=== PATIENT | female | born 1955 | race Caucasian/White ===

== ENCOUNTER 2017-04-20 05:32 | Outpatient (CLI) | payer BC ==
[~2017-04-20] VITALS: Ht 170.2 cm; Wt 86.2 kg
[~2017-04-20 05:32] MED LIST: HYDR12.570 PO; HYDR1TAB PO; LEVO500T69 PO; LVT.088T PO; MED FOR CHOLESTEROL; METR500T PO; ONDA8TAB13 PO; TELM1TAB2 PO
[2017-04-20] MEDS ORDERED: POTA-51 PO (11:09)
[2017-04-20] MEDS ORDERED: UBID100C44 PO (11:09)
[2017-04-20] MEDS ORDERED: LEVO50TA6 PO (11:09)
[2017-04-20] MEDS ORDERED: METF500T4 PO (11:09)
[2017-04-20] MEDS ORDERED: CYAN250010 PO (11:09)
[2017-04-20] MEDS ORDERED: LISI1TAB8 PO (11:09)
[2017-04-20] MEDS ORDERED: LIRA0.6P SQ (11:09)
[2017-04-20] MEDS ORDERED: LIOT5TAB3 PO (11:09)
[2017-04-20] MEDS ORDERED: SIMV20TA3 PO (11:09)
== END 2017-04-20 11:15 ==
LOC: PREOP 05:32
PROVIDERS: ATTEND Surgery
DX: Z01.818 Encounter for other preprocedural examination (principal); L72.3 Sebaceous cyst

== ENCOUNTER 2017-04-26 08:20 | Day surgery (SDC) | payer BC, OTHER ==
[~2017-04-26] VITALS: Ht 170.2 cm; Wt 86.2 kg
[~2017-04-26 08:20] MED LIST changes: +CYAN250010 PO; +LEVO50TA6 PO; +LIOT5TAB3 PO; +LIRA0.6P SQ; +LISI1TAB8 PO; +METF500T4 PO; +POTA-51 PO; +SIMV20TA3 PO; +UBID100C44 PO
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
--- NOTE | 2017-04-26 08:31 | Progress Note-Pre Operative ---
Pre-Operative Progress Note H&P Reviewed The H&P was reviewed, patient examined and no changes noted. Date Seen by Provider: Apr 26, 2017 Time Seen by Provider: 11:40 Date H&P Reviewed: Apr 26, 2017 Time H&P Reviewed: 08:30 Pre-Operative Diagnosis: Sebaceous cyst-left inframammary region ADELSO HEIN MD Apr 26, 2017 8:31 am
[2017-04-26 08:45] VITALS: BP 112/60
[2017-04-26] MEDS ORDERED: ceFAZolin 2 GM/NS 50 ML IV ONE (08:45)
[2017-04-26] MEDS ORDERED: CATHETER FLUSH 10 ML SYR IV PRN (08:45)
[2017-04-26] MEDS ORDERED: FAMOTIDINE 20MG/2ML IV (PEPCID) ONE (09:13)
[2017-04-26] MEDS ORDERED: FAMOTIDINE 20MG/2ML IV (PEPCID) IV ONE (09:15)
[2017-04-26] MEDS ORDERED: LACTATED RINGERS 1,000 ML IV PRN (09:27)
[2017-04-26] MEDS ORDERED: ceFAZolin 2 GM/50 ML NS 50 ML IV ONE (09:30)
[2017-04-26] MEDS ORDERED: LIDOCAINE/EPI 1%-1:200,000 (XYLOCAINE) 10 ML VIAL ONE (10:26)
[2017-04-26] MEDS ORDERED: BUPIVACAINE 0.25% 30 ML (SENSORCAINE) VIAL ONE (10:26)
[2017-04-26] MEDS ORDERED: proPOfol 200 MG/20 ML (DIPRIVAN) VIAL IV ONE (10:32)
[2017-04-26] MEDS ORDERED: fentaNYL INJECTION 100 MCG/2 ML AMP ONE (10:32)
[2017-04-26] MEDS ORDERED: MIDAZOLAM 2 MG/2 ML (VERSED) VIAL ONE (10:32)
[2017-04-26] MEDS ORDERED: LIDOCAINE PF 2% 5 ML (XYLOCAINE) VIAL ONE (10:32)
[2017-04-26] MEDS ORDERED: ONDANSETRON 4 MG/2 ML (SDV) Z0FRAN ONE (10:32)
[2017-04-26] MEDS ORDERED: SEVOFLURANE (ULTANE) 15 ML INHAL SOLN ONE (10:32)
--- NOTE | 2017-04-26 11:31 | Operative Report ---
Operative Report Date of Procedure/Surgery Apr 26, 2017 Surgeon (s) ADELSO HEIN MD Calendering Machine Operator (s): N/A Post-Operative Diagnosis Same Procedure Performed Excision with layered closure Description of Procedure Anesthesia Type: General Estimated blood loss (mL): Minimal Specimen(s) collected/removed sebaceous cyst Description of the Procedure Indication for the procedure: This lady presented with a 3 cm sebaceous cyst over the left infra-mammary with early signs of infection. Following a brief course of antibiotics, she was offered formal excision under general anesthetic. Informed consent was obtained after relieving the operative details and complications of postoperative wound infection and recurrence. Description of procedure: She was placed supine on the operating table and general anesthesia induced. 2 g of Ancef were administered intravenously as prophylaxis against wound infection. After adequate antiseptic preparation, pre -emptivw analgesia was established using a combination 1 percent lidocaine with epinephrine and 0.5 percent Marcaine. An elliptical incision about 6 cm was made in a transverse fashion and the cyst excised intact. Hemostasis was achieved using cautery and incision closed using 3-0 Vicryl for the sub- cutaneous tissue and 4-0 nylon for skin, in an interrupted fashion. A nonadherent dressing was then applied She tolerated the procedure well, was extubated in the operating room and taken to the recovery room in a stable condition. Findings of the Procedure see op report Allergies and Home Medications Allergies Coded Allergies: No Known Drug Allergies (Unverified , 04/20/17) Home Medications Cyanocobalamin (Vitamin B-12) 2,500 Mcg Tablet, 2,500 MCG PO DAILY, (Reported) Levothyroxine Sodium 50 Mcg Tablet, 50 MCG PO DAILY, (Reported) Liothyronine Sodium 5 Mcg Tablet, 5 MCG PO BID, (Reported) Liraglutide 0.6 Mg/0.1 Ml Pen.injctr, 1.8 MG SQ DAILY, (Reported) Lisinopril/Hydrochlorothiazide 1 Each Tablet, 1 EACH PO BID, (Reported) Metformin HCl 500 Mg Tablet, 500 MG PO DAILY, (Reported) Potassium Chloride 20 Meq Tablet.er, 20 MEQ PO DAILY, (Reported) Simvastatin 20 Mg Tablet, 20 MG PO DAILY, (Reported) Ubidecarenone 100 Mg Capsule, 100 MG PO DAILY, (Reported) ADELSO HEIN MD Apr 26, 2017 11:31 am
[2017-04-26] MEDS ORDERED: ACHD5005 PO (11:33)
--- NOTE | 2017-04-26 11:37 | Discharge Inst-Simple/Standard ---
Discharge Inst-Standard Discharge Medications New, Converted or Re-Newed RX: RX on Chart Patient Instructions/Follow Up Plan of Care/Instructions/FU: Dressing off in 48 hours.F/U with my nurse in 10 days for suture removal Activity as Tolerated: Yes Discharge Diet: No Restrictions ADELSO HEIN MD Apr 26, 2017 11:37 am
[2017-04-26] MEDS ORDERED: morphine INJ 10 MG/ML 1ML (SYR OR VIAL) IVP PRN (11:45)
[2017-04-26] MEDS ORDERED: HYDROmorphone (DILAUDID) 2 MG/ML VIAL IVP PRN (11:45)
[2017-04-26] MEDS ORDERED: ONDANSETRON 4 MG/2 ML (SDV) Z0FRAN IVP PRN (11:45)
[2017-04-26] MEDS ORDERED: MEPERIDINE (DEMEROL) INJ 50 MG/ML IVP PRN (11:45)
[2017-04-26 12:30] VITALS: BP 110/63
[2017-04-26 13:00] VITALS: BP 109/60
== END 2017-04-26 13:20 | disposition home or self-care (01) ==
LOC: SDC 08:20
PROVIDERS: ATTEND Surgery
DX: L72.3 Sebaceous cyst (principal); E11.9 Type 2 diabetes mellitus without complications; E03.9 Hypothyroidism, unspecified; Z79.84 Long term (current) use of oral hypoglycemic drugs; Z79.899 Other long term (current) drug therapy; Z87.891 Personal history of nicotine dependence
CPT/HCPCS: 82962; 87081

== ENCOUNTER → 2017-09-12 | Outpatient (CLI) | payer BC, OTHER ==
[~2017-09-12] MED LIST changes: +ACHD5005 PO; -METF500T4 PO; +METF500T5 PO
--- NOTE | 2017-09-12 19:25 | Diagnostic Imaging Report ---
Indication: Routine screening. Comparison is made with prior mammogram from 10/17/2013 and 06/25/2012. 2-D and 3-D bilateral screening mammography was performed with CAD. Both breasts are heterogeneously dense, limiting the sensitivity of mammography. No dominant mass or malignant appearing microcalcifications are seen. The axillae are unremarkable. There are benign calcifications present. Impression: BI-RADS category 2 No mammographic features suspicious for malignancy are identified. ACR BI-RADS Category 2: Benign findings. Result letter will be mailed to the patient. Note: At least 10% of breast cancer is not imaged by mammography. Dictated by: Dictated on workstation # [id number]
== END ==
LOC: RAD 14:35
PROVIDERS: ATTEND Internal Medicine
DX: Z12.31 Encounter for screening mammogram for malignant neoplasm of breast (principal)
CPT/HCPCS: 77067

== ENCOUNTER → 2019-04-29 | Outpatient (CLI) | payer OTHER ==
[~2019-04-29] MED LIST changes: +LIOT5TAB10 PO; -LIOT5TAB3 PO; +LISI1TAB25 PO; -LISI1TAB8 PO; +METF-397 PO; -METF500T5 PO; +SIMV20TA26 PO; -SIMV20TA3 PO
--- NOTE | 2019-04-29 17:24 | Diagnostic Imaging Report ---
INDICATION: Increasing right shoulder pain with no recent injury. FINDINGS: Three views of the right shoulder show no fracture, dislocation, or other acute abnormality. There is mild narrowing and minimal spurring of the glenohumeral joint. IMPRESSION: There are mild degenerative changes present with no acute abnormality seen. Dictated by: Dictated on workstation # [id number]
== END ==
LOC: RAD 16:58
PROVIDERS: ATTEND Internal Medicine
DX: M19.011 Primary osteoarthritis, right shoulder (principal); G56.03 Carpal tunnel syndrome, bilateral upper limbs; M77.11 Lateral epicondylitis, right elbow; I73.00 Raynaud's syndrome without gangrene
CPT/HCPCS: 73030

== ENCOUNTER → 2020-12-24 | Outpatient (CLI) | payer OTHER ==
[~2020-12-24] MED LIST changes: -LISI1TAB25 PO; +LISI1TAB46 PO
--- NOTE | 2020-12-24 17:17 | Diagnostic Imaging Report ---
INDICATION: Routine screening. Comparison is made with prior mammogram 09/12/2017 and 10/17/2013. 2-D and 3-D bilateral screening mammography was performed with CAD. Both breasts are heterogeneously dense, limiting the sensitivity of mammography. The parenchymal pattern is stable. No mass or malignant-appearing microcalcifications are seen. There are benign calcifications. Axillae are unremarkable. IMPRESSION: BI-RADS Category 2 No mammographic features suspicious for malignancy are identified. ACR BI-RADS Category 2: Benign findings. Result letter will be mailed to the patient. Note: At least 10% of breast cancer is not imaged by mammography. Dictated by: Dictated on workstation # [id number]
== END ==
LOC: RAD 14:48
PROVIDERS: ATTEND Nurse Practitioner Family
DX: Z12.31 Encounter for screening mammogram for malignant neoplasm of breast (principal)
CPT/HCPCS: 77063; 77067

== ENCOUNTER → 2021-08-20 | Outpatient (CLI) | payer OTHER ==
[~2021-08-20] VITALS: Ht 170 cm; Wt 91.0 kg
[~2021-08-20] MED LIST changes: +CATHETER FLUSH 10 ML SYR IVP PRN
[2021-08-20 08:09] VITALS: BP 134/79
--- NOTE | 2021-08-20 13:00 | NUCLEAR STRESS TEST ---
TREADMILL NUCLEAR STRESS TEST Date of procedure: 08/20/2021. Primary care provider: Jayesh Cantu DO. Admitting physician: Jayesh Cantu DO. INDICATION: Chest pain. BASELINE ELECTROCARDIOGRAM: Sinus rhythm STRESS TEST PROCEDURE: Please see separate report for stress test results. This is the nuclear interpretation only. NUCLEAR PROCEDURE: The patient was administered 10.7 mCi of intravenous technetium 99m Tetrofosmin at rest for the rest images. The patient was subsequ ently administered 29.6 mCi of intravenous technetium 99 M Tetrofosmin at peak stress for the stress images. Following an appropriate wait after each injection, imaging was obtained. The images were subsequently processed and reformatted in the usual views. Gated imaging was obtained. The image quality was adequate with a mild degree of gastrointestinal attenuation artifact. CT attenuation correction was used as a adjunct to standard imaging. Both the corrected and uncorrected images were reviewed for interpretation. NUCLEAR RESULTS: There was a small, moderate intensity, reversible inferoapical defect with a small amount of inducible ischemia with a summed stress score of 7 and a summed difference score of 6. There was normal left ventricular chamber size with an end-diastolic volume of 48 mL and an end-systolic volume of 17 mL. There was no evidence of transient ischemic dilatation. The TID ratio was 1.08. There was normal wall motion in all segments with a calculated ejection fraction of 64%. IMPRESSION: 1. This is the nuclear interpretation only for a treadmill nuclear stress test. 2. There was a small, moderate intensity, reversible inferoapical defect with a small amount of inducible ischemia with a summed stress score of 7 and a summed difference score of 6. 3. There was normal wall motion in all segments with a calculated ejection fraction of 64%. 4. This is an abnormal result although represents an overall low risk for possible future coronary ischemic events. Certain portions of this document may have been dictated utilizing voice recognition technology. Inherent to this technology, typographical and grammatical errors may exist. As much as I am diligent to identify and correct these mistakes, some errors may remain in the document. ANNITA SMITH JR, MD August 20, 2021 12:59
== END ==
LOC: CARD 06:32
PROVIDERS: ATTEND Internal Medicine
DX: R07.89 Other chest pain (principal)
CPT/HCPCS: 78452; 93017; A9502

== ENCOUNTER 2021-09-30 10:00 | Day surgery (SDC) | payer OTHER ==
[2021-09-30] VITALS (9 sets, daily range): BP systolic 95–122; BP diastolic 49–79
[~2021-09-30] VITALS: Ht 170.2 cm; Wt 100.9 kg
[2021-09-30 08:45] LABS: BASOPHILS % (AUTO) 1 % (0-10); EOSINOPHILS # (AUTO) 0.1 10^3/uL (0.0-0.3); EOSINOPHILS % (AUTO) 1 % (0-10); HEMATOCRIT 44 % (35-52); HEMOGLOBIN 14.1 g/dL (11.5-16.0); LYMPHOCYTES # (AUTO) 2.1 10^3/uL (1.0-4.0); LYMPHOCYTES % (AUTO) 25 % (12-44); MEAN CORPUSCULAR HEMOGLOBIN 28 pg (25-34); MEAN CORPUSCULAR HGB CONC 32 g/dL (32-36); MEAN CORPUSCULAR VOLUME 86 fL (80-99); MEAN PLATELET VOLUME 9.9 fL (9.0-12.2); MONOCYTES # (AUTO) 0.6 10^3/uL (0.0-1.0); MONOCYTES % (AUTO) 7 % (0-12); NEUTROPHILS # (AUTO) 5.4 10^3/uL (1.8-7.8); NEUTROPHILS % (AUTO) 66 % (42-75); PLATELET COUNT 381 10^3/uL (130-400); WHITE BLOOD COUNT 8.2 10^3/uL (4.3-11.0)
--- NOTE | 2021-09-30 08:53 | Pre-Op Note & Conscious Sedat ---
Pre-Operative Progress Note H&P Reviewed The H&P was reviewed, patient examined and no changes noted. Date H&P Reviewed: Sep 30, 2021 Time H&P Reviewed: 08:53 Pre-Op Diagnosis: Abnormal nuclear stress test and angina pectoris Given her current clinical status, she is considered vulnerable. She has no history of heart failure. Conscious Sedation Pre-Proced ASA Score 2 For ASA 3 and 4: Consider anesthesia and medical clearance. Also, for patients with a history of failed moderate sedation consider anesthesia. Airway Lungs Heart ASA score ASA 1: a normal healthy patient ASA 2: a patient with a mild systemic disease (mid diabetes, controlled hypertension, obesity ASA 3: a patient with a severe systemic disease that limits activity (angina, COPD, prior Myocardial infarction) ASA 4: a patient with an incapacitating disease that is a constant threat to life (CHF, renal failure) ASA 5: a moribund patient not expected to survive 24 hrs. (ruptured aneurysm) ASA 6: a declared brain- patient whose organs are being harvested. For emergent operations, add the letter E after the classification Mallampati Classification Grade 2 Sedation Plan Analgesia, Amnesia, Plan communicated to team members, Discussed options with patient/fam, Discussed risks with patient/fam The patient is an appropriate candidate to undergo the planned procedure, sedation, and anesthesia. The patient immediately re-assessed prior to indication. ANNITA SMITH JR, MD Sep 30, 2021 08:53
[2021-09-30 08:59] LABS: INR 0.9 (0.8-1.4); PROTHROMBIN TIME PATIENT 12.9 SEC (12.2-14.7)
[~2021-09-30 10:00] MED LIST changes: +ACET325T38 PO; +ASPIRIN 81 MG CHEW (CHILDREN'S ASA) ONE; +ASPIRIN 81 MG CHEW (CHILDREN'S ASA) PO ONE; +CALC-250 PO; +CATHETER FLUSH 10 ML SYR IV PRN; -CATHETER FLUSH 10 ML SYR IVP PRN; +CYAN-41 PO; +HEParin (CATH LAB) 2,000 ML IV ONE; +HEParin 1000 UNIT/ML (10ML VIAL) FOR BOLUS ONE; +LEVO50CA4 PO; +LIDOCAINE 1% INJ 20 ML VIAL ONE; +MIDAZOLAM 5 MG/5 ML (VERSED) VIAL ONE; +NITRO DRIP 25000 MCG/D5W 250 ML IV ONE; +NS IV 1000 ML 1,000 ML IV ONE; +OMEP20TA56 PO; +VENL75TA2 PO; +VERAPAMIL 5 MG/2 ML (CALAN) VIAL IV ONE; +fentaNYL INJ 100 MCG/2 ML AMP ONE
[2021-09-30] MEDS ORDERED: NS IV 1000 ML 1,000 ML IV SCH (10:30)
--- NOTE | 2021-09-30 10:31 | Cardiac Cath Report ---
CARDIAC CATHETERIZATION DATE OF PROCEDURE: 09/30/2021 INDICATION: Abnormal nuclear stress test and angina pectoris. HISTORY: The patient is a 65 year old female with no previously known history of coronary artery disease who has been having some dyspnea on exertion. Her primary provider had her undergo a nuclear stress test which showed a mild inferoapical ischemic defect with an ejection fraction of 64%. In light of these findings, she is now referred for further evaluation with a cardiac catheterization. Given her current clinical status, she is considered vulnerable. She has no history of heart failure. PROCEDURES PERFORMED: 1. Left heart catheterization with hemodynamic measurements. 2. Diagnostic [place] coronary angiography. PROCEDURE DESCRIPTION: After informed consent and in the fasting state, left heart catheterization was performed through the right radial artery utilizing a 6 [place]yan system by percutaneous approach. Standard 5 [place] Wally catheters were utilized for the diagnostic portion of the procedure. All catheters were exchanged over a guidewire. Following the procedure, a vascular band was applied to the radial artery access site and the sheath was removed with good hemostasis. RESULTS: HEMODYNAMICS: The aortic pressure was 88/48 mmHg. The left ventricular pressure was 90/0 mmHg with a left ventricular end-diastolic pressure of 2 mmHg. There was no significant pressure gradient upon pullback across aortic valve. CORONARY ANGIOGRAPHY: Coronary arteries were mildly calcified, more evident in the left coronary artery. Left main coronary artery: Free of significant disease. Left anterior descending coronary artery: Free of significant disease. The vessel actually bifurcated near the apex. There was a small first diagonal branch which contained a 50% stenosis in the ostium and a 50% stenosis in the proximal segment with ABRAHAM-3 flow. This was approximately a 2 mm vessel. Left circumflex coronary artery: Free of significant disease. Right coronary artery: Dominant and free of significant disease. IMPRESSION: 1. Normal left heart pressures. 2. Mild single-vessel coronary artery disease involving the first diagonal branch of the left anterior descending coronary artery as outlined above. 3. The patient is known to have normal left ventricular systolic function with a calculated ejection fraction of 64% by nuclear stress test that was performed on 08/20/2021. Certain portions of this document may have been dictated utilizing voice recognition technology. Inherent to this technology, typographical and grammatical errors may exist. As much as I am diligent to identify and correct these mistakes, some errors may remain in the document. ANNITA SMITH JR, MD Sep 30, 2021 10:31
[2021-09-30] MEDS ORDERED: ASPI-1238 PO (10:46)
[2021-10-01] MEDS ORDERED: ASPIRIN E.C. 81 MG (ECOTRIN) TAB PO SCH (09:00)
== END 2021-09-30 14:00 | disposition home or self-care (01) ==
LOC: CATH 10:00 → SDC 10:47 → CATH 14:00
PROVIDERS: ATTEND Internal Medicine Cardiovascular Disease
DX: I25.10 Atherosclerotic heart disease of native coronary artery without angina pectoris (principal); Z87.891 Personal history of nicotine dependence
CPT/HCPCS: 85025; 85610; 87081; 93458; C1894; 36415

== ENCOUNTER → 2021-11-08 | Outpatient (CLI) | payer OTHER ==
[~2021-11-08] MED LIST changes: +ASPI-1238 PO; -ASPIRIN 81 MG CHEW (CHILDREN'S ASA) ONE; -ASPIRIN 81 MG CHEW (CHILDREN'S ASA) PO ONE; -CATHETER FLUSH 10 ML SYR IV PRN; -HEParin (CATH LAB) 2,000 ML IV ONE; -HEParin 1000 UNIT/ML (10ML VIAL) FOR BOLUS ONE; -LIDOCAINE 1% INJ 20 ML VIAL ONE; -MIDAZOLAM 5 MG/5 ML (VERSED) VIAL ONE; -NITRO DRIP 25000 MCG/D5W 250 ML IV ONE; -NS IV 1000 ML 1,000 ML IV ONE; -VERAPAMIL 5 MG/2 ML (CALAN) VIAL IV ONE; -fentaNYL INJ 100 MCG/2 ML AMP ONE
== END ==
LOC: CARD 14:19
PROVIDERS: ATTEND Physician Assistant
DX: I25.10 Atherosclerotic heart disease of native coronary artery without angina pectoris (principal); I11.9 Hypertensive heart disease without heart failure
CPT/HCPCS: 93306

== ENCOUNTER → 2022-04-12 | Outpatient (CLI) | payer OTHER ==
--- NOTE | 2022-04-12 18:29 | Diagnostic Imaging Report ---
Indication: Routine screening. Comparison is made with prior mammograms 12/24/2020 and 09/12/2017. 2-D and 3-D bilateral screening mammography was performed with CAD. Both breasts are heterogeneously dense, limiting the sensitivity of mammography. The parenchymal pattern is stable. No mass or malignant-appearing microcalcifications are seen. There are benign calcifications. Axillae are unremarkable. IMPRESSION: BI-RADS Category 2. No mammographic features suspicious for malignancy are identified. ACR BI-RADS Category 2: Benign findings. Result letter will be mailed to the patient. Note: At least 10% of breast cancer is not imaged by mammography. Dictated by: Dictated on workstation # [id number]
== END ==
LOC: RAD 14:18
PROVIDERS: ATTEND Nurse Practitioner Family
DX: Z12.31 Encounter for screening mammogram for malignant neoplasm of breast (principal)
CPT/HCPCS: 77063; 77067

== ENCOUNTER 2022-09-16 18:32 | Emergency (ER) | payer OTHER ==
[~2022-09-16] VITALS: Ht 170 cm; Wt 100.0 kg
[2022-09-16] MEDS ORDERED: ACETAMINOPHEN 500 MG TAB (TYLENOL) PO ONE (19:15)
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
--- NOTE | 2022-09-16 19:45 | Diagnostic Imaging Report ---
INDICATION: Chest tightness. FINDINGS: The heart size, mediastinal configuration, and pulmonary vascularity are within normal limits. There is no pleural effusion, pneumothorax, or pneumonia. The osseous structures are unremarkable. IMPRESSION: No acute cardiopulmonary abnormality. Dictated by: Dictated on workstation # [id number]
--- NOTE | 2022-09-16 19:46 | Diagnostic Imaging Report ---
INDICATION: Pain. EXAMINATION: Three views were obtained. FINDINGS: The alignment is normal. There is no fracture or dislocation. Soft tissues are unremarkable. IMPRESSION: No acute fracture or dislocation. Dictated by: Dictated on workstation # [id number]
[2022-09-16 19:58] VITALS: BP 124/74
== END 2022-09-16 19:58 | disposition home or self-care (01) ==
LOC: EDUNIT# 18:32 → ER 18:35
DX: S50.11XA Contusion of right forearm, initial encounter (principal); M25.521 Pain in right elbow; R07.81 Pleurodynia; V89.2XXA Person injured in unspecified motor-vehicle accident, traffic, initial encounter; W22.8XXA Striking against or struck by other objects, initial encounter; Y92.410 Unspecified street and highway as the place of occurrence of the external cause
CPT/HCPCS: 71046; 73080; 73090

== ENCOUNTER → 2022-09-16 | Outpatient (CLI) | payer OTHER ==
[~2022-09-16] MED LIST changes: +POTA-330 PO; -POTA-51 PO
--- NOTE | 2022-09-16 09:38 | Diagnostic Imaging Report ---
EXAMINATION: CT chest without contrast (lung screening). TECHNIQUE: Multiple contiguous axial images were obtained through the chest without the use of intravenous contrast according to lung cancer screening protocol. All CT scans use one or more of the following dose optimizing techniques: automated exposure control, MA and/or KvP adjustment based on patient size and exam type or iterative reconstruction. HISTORY: 20 pack year history of smoking. COMPARISON: None available. FINDINGS: Thyroid: The thyroid is normal. Mediastinum: Heart size is normal without significant pericardial effusion. Calcifications of the aorta and coronary vessels. Thoracic aorta is normal in caliber. No suspicious lymphadenopathy. Lungs and airways: The lungs are clear without consolidation, pleural effusion, or pneumothorax. There is atelectasis within the lung bases. No suspicious pulmonary nodule. There is linear atelectasis or scarring within the left lower lobe. The airways are normal. Upper abdomen: The subphrenic structures are normal. Musculoskeletal: Degenerative changes of the spine without suspicious osseous lesion or compression fracture. IMPRESSION: 1. No suspicious pulmonary nodules. Recommend continued annual low-dose CT screening. LUNG-RADS CATEGORY: 1 MODIFIER: None Dictated by: Dictated on workstation # [id number]
== END ==
LOC: RAD 07:37
PROVIDERS: ATTEND Nurse Practitioner Family
DX: Z12.2 Encounter for screening for malignant neoplasm of respiratory organs (principal); Z87.891 Personal history of nicotine dependence
CPT/HCPCS: 71271